=== PATIENT | male | born 1960 | race Caucasian/White ===

== ENCOUNTER 2018-04-25 17:11 | Inpatient (IN) | payer OTHER ==
[~2018-04-25] VITALS: Ht 182.9 cm; Wt 119.8 kg
[~2018-04-25 17:11] MED LIST: AMLODIPINE BESYL5 MG PO; DEXAMETHASONE SOD PHOS INJ 4 MG/ML VIAL IV ONE; FENTANYL CITRATE/PF 100MCG/2 ML INJ ONE; FLOMAX0.4 MG PO; GLIMEPIRIDE4 MG PO; LIDOCAINE HCL 2% LOCAL INJ 5 ML SDV VIAL INJ ONE; LISINOPRIL40 MG PO; LOVASTATIN20 MG PO; METFORMIN HCL1000 M1 PO; MIDAZOLAM HCL 2 MG/2 ML VIAL ONE; ONDANSETRON HCL INJ 2 MG/ML VIAL IV ONE; PROPOFOL IV EMULSION 10 MG/ML 20 ML VIAL IV ONE; SEVOFLURANE INHAL SOLN 250 ML PEN BTL INH ONE; VICTOZA 3-0.6 MG/0.1 SQ
[2018-04-25 17:45] VITALS: BP 115/78
[2018-04-25] MEDS ORDERED: VANCOMYCIN 1GM/NS 250 ML 250 ML IV SCH (17:45)
[2018-04-25] MEDS ORDERED: DEXTROSE 50% SYRINGE 50 ML IV PRN (17:45)
[2018-04-25 18:00] VITALS: BP 115/78
[2018-04-25] MEDS ORDERED: CLINDAMYCIN HC150 MG PO (18:00)
[2018-04-25 19:01] LABS: BASOPHILS # (AUTO) 0.1 (0.0-0.1); BASOPHILS % 0.6 % (0.0-1.0); EOSINOPHILS # (AUTO) 0.3 (0.0-0.4); EOSINOPHILS % 1.6 % (0.0-6.0); HEMATOCRIT 37.8 % (38.2-49.6); LYMPHOCYTES # (AUTO) 2.7 (1.0-3.2); LYMPHOCYTES % 15.6 % (18.0-39.1); MEAN CORPUSCULAR HEMOGLOBIN 31.4 pg (28-32); MEAN CORPUSCULAR HGB CONC 34.4 g/dL (31-35); MEAN CORPUSCULAR VOLUME 91.3 fL (81-99); MONOCYTES # (AUTO) 1.7 (0.2-0.8); MONOCYTES % 9.8 % (4.4-11.3); NEUTROPHILS # (AUTO) 11.8 (2.1-6.9); NEUTROPHILS % 68.4 % (38.7-80.0); PLATELET COUNT 257 x10e3/uL (140-360); RED BLOOD COUNT 4.14 x10e6/uL (4.3-5.7); RED CELL DISTRIBUTION WIDTH 11.9 % (11.7-14.4)
[2018-04-25 19:21] LABS: ALBUMIN 2.5 g/dL (3.5-5.0); ALBUMIN/GLOBULIN RATIO 0.6 (0.8-2.0); ANION GAP 15.6 mmol/L (8-16); CALCIUM 9.2 mg/dL (8.4-10.2); CREATININE, SERUM 1.34 mg/dL (0.72-1.25); POTASSIUM 3.6 mmol/L (3.5-5.1)
[2018-04-25 19:38] LABS: EOSINOPHILS % (MANUAL) 4 % (0-7); LYMPHOCYTES % (MANUAL) 11 % (19-48); MONOCYTES % (MANUAL) 8 % (3.4-9.0); NEUTROPHILS % (MANUAL) 74 % (40-74); PLATELET ESTIMATE ADEQUATE; PLATELET MORPHOLOGY COMMENT FEW GIANT; RBC MORPHOLOGY COMMENT NORMAL
[2018-04-25 20:44] VITALS: BP 115/64
[2018-04-25] MEDS ORDERED: SODIUM CHLORIDE 0.9% 250ML 250 ML ONE (20:50)
[2018-04-25] MEDS ORDERED: INSULIN DETEMIR 100 UNIT/ML PEN SQ SCH (21:00)
[2018-04-25] MEDS: INSULIN REGULAR, HUMAN 100 UNIT/1 ML 3ML VIAL SQ SCH (21:00)
[2018-04-25] MEDS: VANCOMYCIN 1GM/NS 250 ML 250 ML IV SCH (21:26)
[2018-04-26] MEDS: PIPER-TAZ 3.375 GM 50 ML IV SCH ×4 (00:35→18:04)
[2018-04-26 01:00] VITALS: BP 122/76
[2018-04-26 04:00] VITALS: BP 121/77
[2018-04-26] MEDS: INSULIN REGULAR, HUMAN 100 UNIT/1 ML 3ML VIAL SQ SCH ×4 (07:30→21:00)
[2018-04-26 08:00] VITALS: BP 122/80
[2018-04-26] MEDS: LISINOPRIL 20 MG TAB PO SCH (09:00)
[2018-04-26] MEDS: INSULIN DETEMIR 100 UNIT/ML PEN SQ SCH ×2 (09:00→16:48)
[2018-04-26] MEDS ORDERED: MUPIROCIN 2% OINT 22 GM TUBE ONE (10:05)
[2018-04-26] MEDS ORDERED: HYDROGEN PEROXIDE 120 ML BTL ONE (10:05)
[2018-04-26] MEDS ORDERED: BUPIVACAINE 0.25% 30ML SDV INJ ONE (10:05)
[2018-04-26] MEDS ORDERED: FENTANYL CITRATE/PF 100MCG/2 ML INJ ONE (11:24)
[2018-04-26] MEDS ORDERED: MORPHINE SULFATE 2 MG/ML SYR ONE (11:42)
[2018-04-26] MEDS ORDERED: MEPERIDINE HCL INJ 50 MG/ML INJ ONE (11:48)
[2018-04-26] MEDS: VANCOMYCIN 1GM/NS 250 ML 250 ML IV SCH ×2 (12:00→23:24)
[2018-04-26] MEDS ORDERED: HYDROMORPHONE 2MG/ML 2 MG/ML ML ONE (12:16)
--- NOTE | 2018-04-26 12:24 | Operative Report ---
DATE OF PROCEDURE: April 26, 2018 PREOPERATIVE DIAGNOSES: Left gluteal abscess, obesity, and diabetes. POSTOPERATIVE DIAGNOSES: Left gluteal abscess, obesity, and diabetes. PROCEDURE PERFORMED: Incision and drainage of left gluteal abscess and debridement of necrotic tissue. ANESTHESIA: General endotracheal. ESTIMATED BLOOD LOSS: Minimal. DRAINS: None. COMPLICATIONS: None. INDICATIONS: The patient is a 57-year-old diabetic male admitted with a left gluteal abscess, had been treated with oral antibiotics without resolution. INTRAOPERATIVE FINDINGS: The patient had a left gluteal abscess that is located, with the patient in lithotomy position, from about 3 o'clock position to about 12 o'clock position to the penis, it did not involve the scrotum, did not involve the rectum. The pus was whitish and nonfoul smelling. The cavity was irrigated and we did not find any fistula. A [place] drain was placed. DESCRIPTION OF PROCEDURE: With the patient lying on the operative table in the supine position after administration of general anesthesia, he was prepped and draped for incision and drainage of left gluteal abscess with the patient in lithotomy position. An incision was made in the upper-most fluctuant area inferior to the base of the penis and a counterincision inferior to that. The 2 incisions were interconnected with a Ju drain that was secured to itself with 3-0 silk. The cavity copiously irrigated and the prostate tissue divided, bleeding points cauterized and then the wound was packed with iodoform impregnated 4 x 4. The patient tolerated the procedure well, taken to the recovery room in stable condition. Job#: [id number] BONY
[2018-04-26] MEDS ORDERED: SODIUM CHLORIDE 0.9% 1000ML 1,000 ML ONE (12:25)
[2018-04-26] MEDS: HYDROCODONE/APAP 7.5MG-325MG 1 EA TAB PO PRN (13:39)
[2018-04-26 16:00] VITALS: BP 106/64
[2018-04-26 20:25] VITALS: BP 122/66
[2018-04-26] MEDS: PRAVASTATIN 20 MG TAB PO SCH (21:45)
[2018-04-26 22:00] VITALS: BP 122/66
[2018-04-27] MEDS: PIPER-TAZ 3.375 GM 50 ML IV SCH ×5 (01:05→23:43)
[2018-04-27] MEDS: HYDROCODONE/APAP 7.5MG-325MG 1 EA TAB PO PRN ×3 (01:32→16:36)
[2018-04-27 05:34] VITALS: BP 111/72
[2018-04-27 09:13] VITALS: BP 129/63
[2018-04-27] MEDS: LISINOPRIL 20 MG TAB PO SCH (09:20)
[2018-04-27] MEDS: INSULIN DETEMIR 100 UNIT/ML PEN SQ SCH ×2 (09:26→16:36)
[2018-04-27] MEDS: INSULIN REGULAR, HUMAN 100 UNIT/1 ML 3ML VIAL SQ SCH ×4 (09:27→21:00)
[2018-04-27] MEDS: VANCOMYCIN 1GM/NS 250 ML 250 ML IV SCH ×2 (09:35→21:19)
[2018-04-27 12:09] VITALS: BP 145/82
[2018-04-27 16:21] VITALS: BP 155/72
[2018-04-27] MEDS: HYDROMORPHONE 2MG/ML 2 MG/ML ML IV PRN ×2 (19:39→23:43)
[2018-04-27] MEDS: PRAVASTATIN 20 MG TAB PO SCH (21:19)
[2018-04-28] VITALS (7 sets, daily range): BP systolic 119–159; BP diastolic 61–86
[2018-04-28 05:32] LABS: BASOPHILS # (AUTO) 0.1 (0.0-0.1); BASOPHILS % 0.8 % (0.0-1.0); EOSINOPHILS # (AUTO) 0.3 (0.0-0.4); EOSINOPHILS % 2.4 % (0.0-6.0); LYMPHOCYTES # (AUTO) 3.9 (1.0-3.2); LYMPHOCYTES % 27.4 % (18.0-39.1); MEAN CORPUSCULAR HEMOGLOBIN 31.4 pg (28-32); MEAN CORPUSCULAR HGB CONC 33.3 g/dL (31-35); MEAN CORPUSCULAR VOLUME 94.2 fL (81-99); MONOCYTES # (AUTO) 1.1 (0.2-0.8); MONOCYTES % 7.8 % (4.4-11.3); NEUTROPHILS # (AUTO) 8.1 (2.1-6.9); NEUTROPHILS % 56.8 % (38.7-80.0); PLATELET COUNT 246 x10e3/uL (140-360); RED BLOOD COUNT 3.82 x10e6/uL (4.3-5.7); RED CELL DISTRIBUTION WIDTH 11.9 % (11.7-14.4)
[2018-04-28 05:56] LABS: ANION GAP 13.3 mmol/L (8-16); BLOOD UREA NITROGEN 10 mg/dL (7-26); BUN/CREATININE RATIO 9 (6-25); CALCIUM 8.5 mg/dL (8.4-10.2); CARBON DIOXIDE 26 mmol/L (22-29); CHLORIDE 106 mmol/L (98-107); CREATININE, SERUM 1.13 mg/dL (0.72-1.25); EST GLOMERULAR FILTRATION RATE > 60 ML/MIN (60-); GLUCOSE 124 mg/dL (74-118); POTASSIUM 4.3 mmol/L (3.5-5.1); SODIUM 141 mmol/L (136-145)
[2018-04-28] MEDS: PIPER-TAZ 3.375 GM 50 ML IV SCH ×2 (06:29→12:00)
[2018-04-28] MEDS: INSULIN REGULAR, HUMAN 100 UNIT/1 ML 3ML VIAL SQ SCH ×4 (07:30→21:30)
[2018-04-28 07:35] LABS: EOSINOPHILS % (MANUAL) 2 % (0-7); LYMPHOCYTES % (MANUAL) 30 % (19-48); METAMYELOCYTES % (MANUAL) 1 % (0-0); MONOCYTES % (MANUAL) 5 % (3.4-9.0); MYELOCYTES % (MANUAL) 2 % (0-0); NEUTROPHILS % (MANUAL) 59 % (40-74)
[2018-04-28 07:36] LABS: ANISOCYTOSIS SLIGHT; PLATELET ESTIMATE ADEQUATE; PLATELET MORPHOLOGY COMMENT NORMAL; RBC MORPHOLOGY COMMENT NORMAL
[2018-04-28] MEDS: HYDROMORPHONE 2MG/ML 2 MG/ML ML IV PRN ×4 (07:37→20:02)
[2018-04-28] MEDS: INSULIN DETEMIR 100 UNIT/ML PEN SQ SCH ×2 (09:00→17:00)
[2018-04-28] MEDS: NICOTINE 14 MG/EA PATCH TOP SCH (09:00)
[2018-04-28] MEDS: VANCOMYCIN 1GM/NS 250 ML 250 ML IV SCH ×2 (09:00→22:20)
[2018-04-28] MEDS ORDERED: BACITRACIN 50,000 UNIT VIAL ONE (13:51)
[2018-04-28] MEDS ORDERED: HYDROGEN PEROXIDE 120 ML BTL ONE (14:27)
[2018-04-28] MEDS: LEVOFLOXACIN 750MG/D5W 150ML 150 ML IV SCH (15:45)
--- NOTE | 2018-04-28 15:45 | Operative Report ---
DATE OF PROCEDURE: April 28, 2018 PREOPERATIVE DIAGNOSES 1. Status post incision and drainage and debridement of left gluteal abscess. 2. Diabetes. 3. Obesity. 4. Cigarette abuse. POSTOPERATIVE DIAGNOSES 1. Status post incision and drainage and debridement of left gluteal abscess. 2. Diabetes. 3. Obesity. 4. Cigarette abuse. PROCEDURE PERFORMED: Debridement of necrotic tissue and irrigation of the wound. ESTIMATED BLOOD LOSS: Minimal. DRAINS: None. COMPLICATIONS: None. INDICATIONS AND FINDINGS: This 57-year-old diabetic male was admitted with an abscess of the left gluteal region. Patient is status post day 2 for the initial drainage and debridement of an abscess of the left gluteal area that extended from the base of the scrotum to the medial left gluteal area. There was no involvement of the rectum nor fistula, and culture and sensitivities so far have revealed staph infection. The patient now is admitted for further debridement. He has been noncompliant, leaving his room and going outside of the hospital to smoke. He has been advised against doing that and has been started on a NicoDerm patch. DESCRIPTION OF PROCEDURE: With the patient lying on the operative table in the supine position, after administration of general anesthesia, he was prepped and draped for incision and drainage. He was placed in the right lateral decubitus position with the left side up to allow exposure for the debridement. The patient had already a [place] drain. There was further necrotic tissue located superior along the left gluteal region. The previously drained abscess with a Ju drain was located distally. This previously drained area extended to the base of the scrotum, but there was no drainage. There was no involvement of the scrotum. We went ahead and debrided further necrotic tissue that was located in the most superior aspect of the left gluteal region going into the presacral area, excised a segment about the size of a quarter of necrotic skin and subcutaneous fat until we reached an area of further soft-tissue necrosis. We made a counter-incision and then interconnected the 2 sites with a 1/4-inch [place] drain and then debrided all necrotic tissue in that area and irrigated it with saline and Betadine solution. We then further debrided the previously drained area until all the tissue appeared to be viable. Again, we examined the operative field, and the soft-tissue necrosis involved the upper part of the scrotum but did not involve the scrotum. There was no evidence of rectal involvement. As previously stated, this is a methicillin-resistant staph. He is on vancomycin. After we debrided both areas and copiously irrigated, then we packed that the 2 cavities of the left gluteal region with Betadine and peroxide-containing sponge. Sterile dressing was applied. The patient tolerated the procedure well and was taken to the recovery room in stable condition. The family was informed of the intraoperative findings. I asked them to encourage the patient to follow hospital policy and stop leaving the hospital to smoke. Job#: [id number]
[2018-04-28] MEDS: LISINOPRIL 20 MG TAB PO SCH (16:00)
[2018-04-28] MEDS ORDERED: MIDAZOLAM HCL 2 MG/2 ML VIAL ONE (17:24)
[2018-04-28] MEDS ORDERED: FENTANYL CITRATE/PF 100MCG/2 ML INJ ONE (17:24)
[2018-04-28] MEDS: HYDROCODONE/APAP 7.5MG-325MG 1 EA TAB PO PRN (17:27)
[2018-04-28] MEDS ORDERED: SEVOFLURANE INHAL SOLN 250 ML PEN BTL ONE (17:41)
[2018-04-28] MEDS ORDERED: EPHEDRINE SULFATE INJ 50 MG/10 ML SYR ONE (17:41)
[2018-04-28] MEDS ORDERED: ONDANSETRON HCL INJ 2 MG/ML VIAL ONE (17:41)
[2018-04-28] MEDS ORDERED: PROPOFOL IV EMULSION 10 MG/ML 20 ML VIAL ONE (17:41)
[2018-04-28] MEDS: PRAVASTATIN 20 MG TAB PO SCH (21:30)
[2018-04-29] VITALS (9 sets, daily range): BP systolic 114–150; BP diastolic 56–75
[2018-04-29] MEDS: HYDROMORPHONE 2MG/ML 2 MG/ML ML IV PRN ×6 (00:47→22:35)
[2018-04-29 05:16] LABS: BASOPHILS # (AUTO) 0.1 (0.0-0.1); BASOPHILS % 0.5 % (0.0-1.0); EOSINOPHILS # (AUTO) 0.3 (0.0-0.4); EOSINOPHILS % 2.3 % (0.0-6.0); HEMATOCRIT 35.3 % (38.2-49.6); HEMOGLOBIN 11.6 g/dL (14.0-18.0); LYMPHOCYTES # (AUTO) 2.9 (1.0-3.2); LYMPHOCYTES % 22.4 % (18.0-39.1); MEAN CORPUSCULAR HEMOGLOBIN 31.2 pg (28-32); MEAN CORPUSCULAR HGB CONC 32.9 g/dL (31-35); MEAN CORPUSCULAR VOLUME 94.9 fL (81-99); MONOCYTES % 7.8 % (4.4-11.3); NEUTROPHILS # (AUTO) 8.4 (2.1-6.9); NEUTROPHILS % 63.9 % (38.7-80.0); PLATELET COUNT 241 x10e3/uL (140-360); RED BLOOD COUNT 3.72 x10e6/uL (4.3-5.7); RED CELL DISTRIBUTION WIDTH 11.9 % (11.7-14.4)
[2018-04-29 05:41] LABS: ALANINE AMINOTRANSFERASE 25 IU/L (0-55); ALBUMIN 2.5 g/dL (3.5-5.0); ALBUMIN/GLOBULIN RATIO 0.6 (0.8-2.0); ALKALINE PHOSPHATASE 53 IU/L (40-150); ANION GAP 12.1 mmol/L (8-16); BLOOD UREA NITROGEN 9 mg/dL (7-26); BUN/CREATININE RATIO 8 (6-25); CALCIUM 9.3 mg/dL (8.4-10.2); CARBON DIOXIDE 28 mmol/L (22-29); CHLORIDE 105 mmol/L (98-107); EST GLOMERULAR FILTRATION RATE > 60 ML/MIN (60-); GLUCOSE 83 mg/dL (74-118); POTASSIUM 4.1 mmol/L (3.5-5.1); SODIUM 141 mmol/L (136-145)
[2018-04-29] MEDS: INSULIN REGULAR, HUMAN 100 UNIT/1 ML 3ML VIAL SQ SCH ×4 (07:30→21:40)
[2018-04-29] MEDS: INSULIN DETEMIR 100 UNIT/ML PEN SQ SCH ×2 (08:35→16:31)
[2018-04-29] MEDS: NICOTINE 14 MG/EA PATCH TOP SCH (09:00)
[2018-04-29] MEDS: VANCOMYCIN 1GM/NS 250 ML 250 ML IV SCH ×2 (09:00→21:49)
[2018-04-29] MEDS: LISINOPRIL 20 MG TAB PO SCH (09:00)
[2018-04-29] MEDS: LEVOFLOXACIN 750MG/D5W 150ML 150 ML IV SCH (15:34)
[2018-04-29] MEDS: PRAVASTATIN 20 MG TAB PO SCH (21:49)
[2018-04-30] VITALS (8 sets, daily range): BP systolic 130–137; BP diastolic 61–92
[2018-04-30 05:22] LABS: BASOPHILS # (AUTO) 0.1 (0.0-0.1); BASOPHILS % 0.5 % (0.0-1.0); EOSINOPHILS # (AUTO) 0.3 (0.0-0.4); EOSINOPHILS % 2.3 % (0.0-6.0); HEMATOCRIT 34.8 % (38.2-49.6); HEMOGLOBIN 11.5 g/dL (14.0-18.0); LYMPHOCYTES # (AUTO) 3.1 (1.0-3.2); LYMPHOCYTES % 23.2 % (18.0-39.1); MEAN CORPUSCULAR VOLUME 93.8 fL (81-99); MONOCYTES # (AUTO) 0.9 (0.2-0.8); MONOCYTES % 7.1 % (4.4-11.3); NEUTROPHILS # (AUTO) 8.5 (2.1-6.9); NEUTROPHILS % 64.1 % (38.7-80.0); PLATELET COUNT 246 x10e3/uL (140-360); RED BLOOD COUNT 3.71 x10e6/uL (4.3-5.7); RED CELL DISTRIBUTION WIDTH 11.8 % (11.7-14.4)
[2018-04-30 05:45] LABS: ALANINE AMINOTRANSFERASE 20 IU/L (0-55); ALBUMIN 2.5 g/dL (3.5-5.0); ALBUMIN/GLOBULIN RATIO 0.6 (0.8-2.0); ALKALINE PHOSPHATASE 58 IU/L (40-150); ANION GAP 12.9 mmol/L (8-16); BLOOD UREA NITROGEN 9 mg/dL (7-26); BUN/CREATININE RATIO 8 (6-25); CALCIUM 9.4 mg/dL (8.4-10.2); CARBON DIOXIDE 27 mmol/L (22-29); CHLORIDE 104 mmol/L (98-107); CREATININE, SERUM 1.19 mg/dL (0.72-1.25); EST GLOMERULAR FILTRATION RATE > 60 ML/MIN (60-); GLUCOSE 119 mg/dL (74-118); POTASSIUM 3.9 mmol/L (3.5-5.1); SODIUM 140 mmol/L (136-145)
[2018-04-30] MEDS: INSULIN DETEMIR 100 UNIT/ML PEN SQ SCH ×2 (08:44→18:09)
[2018-04-30] MEDS: LISINOPRIL 20 MG TAB PO SCH (08:44)
[2018-04-30] MEDS: VANCOMYCIN 1GM/NS 250 ML 250 ML IV SCH ×2 (08:44→21:00)
[2018-04-30] MEDS: NICOTINE 14 MG/EA PATCH TOP SCH (08:44)
[2018-04-30] MEDS: INSULIN REGULAR, HUMAN 100 UNIT/1 ML 3ML VIAL SQ SCH ×4 (08:44→21:00)
[2018-04-30] MEDS: HYDROCODONE/APAP 7.5MG-325MG 1 EA TAB PO PRN (10:39)
[2018-04-30] MEDS: LEVOFLOXACIN 750MG/D5W 150ML 150 ML IV SCH (17:00)
[2018-04-30] MEDS: HYDROMORPHONE 2MG/ML 2 MG/ML ML IV PRN ×2 (18:30→22:00)
[2018-04-30] MEDS: PRAVASTATIN 20 MG TAB PO SCH (21:00)
[2018-05-01] VITALS: BP_SYST 119; BP_SYST 136; BP_DIAS 58; BP_DIAS 85
[2018-05-01] MEDS: HYDROMORPHONE 2MG/ML 2 MG/ML ML IV PRN ×5 (02:05→21:24)
[2018-05-01 04:00] VITALS: BP 128/65
[2018-05-01 05:08] LABS: BASOPHILS # (AUTO) 0.1 (0.0-0.1); BASOPHILS % 0.5 % (0.0-1.0); EOSINOPHILS # (AUTO) 0.2 (0.0-0.4); EOSINOPHILS % 1.9 % (0.0-6.0); HEMATOCRIT 33.9 % (38.2-49.6); HEMOGLOBIN 11.5 g/dL (14.0-18.0); LYMPHOCYTES # (AUTO) 2.9 (1.0-3.2); LYMPHOCYTES % 26.3 % (18.0-39.1); MEAN CORPUSCULAR HEMOGLOBIN 31.8 pg (28-32); MEAN CORPUSCULAR HGB CONC 33.9 g/dL (31-35); MEAN CORPUSCULAR VOLUME 93.6 fL (81-99); MONOCYTES # (AUTO) 0.8 (0.2-0.8); MONOCYTES % 7.4 % (4.4-11.3); NEUTROPHILS # (AUTO) 6.8 (2.1-6.9); NEUTROPHILS % 62.1 % (38.7-80.0); PLATELET COUNT 248 x10e3/uL (140-360); RED BLOOD COUNT 3.62 x10e6/uL (4.3-5.7); RED CELL DISTRIBUTION WIDTH 11.8 % (11.7-14.4)
[2018-05-01 05:34] LABS: ALANINE AMINOTRANSFERASE 19 IU/L (0-55); ALBUMIN 2.5 g/dL (3.5-5.0); ALBUMIN/GLOBULIN RATIO 0.6 (0.8-2.0); ALKALINE PHOSPHATASE 54 IU/L (40-150); ANION GAP 13.7 mmol/L (8-16); BLOOD UREA NITROGEN 9 mg/dL (7-26); BUN/CREATININE RATIO 8 (6-25); CALCIUM 9.5 mg/dL (8.4-10.2); CARBON DIOXIDE 28 mmol/L (22-29); CHLORIDE 103 mmol/L (98-107); CREATININE, SERUM 1.15 mg/dL (0.72-1.25); EST GLOMERULAR FILTRATION RATE > 60 ML/MIN (60-); GLUCOSE 97 mg/dL (74-118); POTASSIUM 3.7 mmol/L (3.5-5.1); SODIUM 141 mmol/L (136-145)
[2018-05-01] MEDS: INSULIN REGULAR, HUMAN 100 UNIT/1 ML 3ML VIAL SQ SCH ×4 (07:30→21:00)
[2018-05-01 08:00] VITALS: BP 139/71
[2018-05-01] MEDS: INSULIN DETEMIR 100 UNIT/ML PEN SQ SCH ×2 (09:00→17:48)
[2018-05-01] MEDS: NICOTINE 14 MG/EA PATCH TOP SCH (09:00)
[2018-05-01] MEDS: VANCOMYCIN 1GM/NS 250 ML 250 ML IV SCH ×2 (09:00→21:00)
[2018-05-01] MEDS: HYDROCODONE/APAP 7.5MG-325MG 1 EA TAB PO PRN (09:30)
[2018-05-01] MEDS: LISINOPRIL 20 MG TAB PO SCH (10:05)
[2018-05-01 16:00] VITALS: BP 127/80
[2018-05-01] MEDS: LEVOFLOXACIN 750MG/D5W 150ML 150 ML IV SCH (17:48)
[2018-05-01 20:01] VITALS: BP 150/70
[2018-05-01] MEDS: PRAVASTATIN 20 MG TAB PO SCH (21:00)
[2018-05-02] VITALS: BP 155/73
[2018-05-02 04:00] VITALS: BP 139/66
[2018-05-02] MEDS: INSULIN REGULAR, HUMAN 100 UNIT/1 ML 3ML VIAL SQ SCH ×4 (07:30→21:10)
[2018-05-02 08:26] VITALS: BP 119/83
[2018-05-02] MEDS: NICOTINE 14 MG/EA PATCH TOP SCH (09:00)
[2018-05-02] MEDS: VANCOMYCIN 1GM/NS 250 ML 250 ML IV SCH (09:00)
[2018-05-02] MEDS: INSULIN DETEMIR 100 UNIT/ML PEN SQ SCH ×2 (09:00→17:00)
[2018-05-02] MEDS: LISINOPRIL 20 MG TAB PO SCH (09:00)
[2018-05-02] MEDS: HYDROMORPHONE 2MG/ML 2 MG/ML ML IV PRN ×4 (09:30→21:27)
[2018-05-02] MEDS: HYDROCODONE/APAP 7.5MG-325MG 1 EA TAB PO PRN (12:10)
[2018-05-02 12:17] VITALS: BP 175/97
[2018-05-02] MEDS: LEVOFLOXACIN 750MG/D5W 150ML 150 ML IV SCH (15:56)
--- NOTE | 2018-05-02 17:11 | Consultation ---
DATE OF CONSULTATION: REASON FOR CONSULTATION: Deep buttock abscess. HISTORY OF PRESENT ILLNESS: This patient is a very pleasant 57-year-old white male with history of obesity. The patient comes into the hospital on April 25 with redness and swelling and pain in his left leg gluteal area. The patient was admitted and underwent an I and D by Dr. Luiz Her. He called me yesterday saying that the abscess was quite deep and he was concerned that it is not healing as fast and there is still some drainage and he wanted me to see if I can arrange IV antibiotic. The patient did grow MRSA from his buttock area. Patient is telling me that there is still some drainage. PAST MEDICAL HISTORY: Diabetes mellitus and obesity. PAST SURGICAL HISTORY: As above. ALLERGIES: NKA. SOCIAL HISTORY: He still smokes cigarettes and no drug abuse or alcohol abuse. PHYSICAL EXAMINATION: GENERAL: Alert, oriented, does not seem to be in any acute distress. VITAL SIGNS: Stable, currently afebrile. HEENT: Not icteric. NECK: Supple. CHEST: Clear. HEART: S1 and S2, no S3, S4 or murmur. ABDOMEN: Soft. Bowel sounds present. EXTREMITIES: No edema. SKIN: There is no rash. On the buttock area there is still some erythema, induration and drainage still. On the dressing, there was still some liquid but not pus, more serosanguineous. IMPRESSION: Deep buttock abscess, status post I\T\D with MRSA in a patient with diabetes mellitus and obesity. Very slow progress. Will arrange for vancomycin at the house. Will discharge the patient when that is arranged. Will get a PICC line. Will follow with him as an outpatient. Discussed with the patient. Job#: [id number]
[2018-05-02 17:29] VITALS: BP 134/70
[2018-05-02 19:53] LABS: INR 0.97; PROTHROMBIN TIME 13.8 seconds (11.9-14.5)
[2018-05-02 19:54] LABS: PARTIAL THROMBOPLASTIN TIME 30.4 seconds (23.8-35.5)
[2018-05-02 21:00] VITALS: BP 130/69
[2018-05-02] MEDS: PRAVASTATIN 20 MG TAB PO SCH (21:10)
--- NOTE | 2018-05-02 23:07 | Diagnostic Imaging Report ---
EXAMINATION: CHEST XRAY LINE PLACEMENT INDICATION: PICC line placement COMPARISON: None FINDINGS: TUBES and LINES: Right upper extremity PICC line with tip visualized at the level of the mid SVC. LUNGS: Lungs are not well inflated. There are bibasilar atelectasis. There is mild prominence of the central pulmonary vasculature, consistent with pulmonary venous congestion. PLEURA: No pleural effusion or pneumothorax. HEART AND MEDIASTINUM: The cardiomediastinal silhouette is unremarkable. BONES AND SOFT TISSUES: No acute osseous lesion. [place] screw noted overlying the right humeral head Soft tissues are unremarkable. UPPER ABDOMEN: No free air under the diaphragm. IMPRESSION: 1. No acute thoracic abnormality. 2. Right PICC line is in good position Signed by: Dr. Denis Vickers M.D. on 05/02/2018 11:03 PM
[2018-05-03] VITALS: BP 152/90
[2018-05-03] MEDS: HYDROMORPHONE 2MG/ML 2 MG/ML ML IV PRN ×2 (02:16→08:44)
[2018-05-03 06:00] VITALS: BP 125/61
[2018-05-03] MEDS: INSULIN REGULAR, HUMAN 100 UNIT/1 ML 3ML VIAL SQ SCH (07:30)
[2018-05-03 08:00] VITALS: BP 128/70
[2018-05-03] MEDS ORDERED: VANCOMYCIN 1GM/NS 250 ML 250 ML IV ONE (08:45)
[2018-05-03] MEDS: NICOTINE 14 MG/EA PATCH TOP SCH (09:00)
[2018-05-03] MEDS: LISINOPRIL 20 MG TAB PO SCH (09:11)
[2018-05-03] MEDS: INSULIN DETEMIR 100 UNIT/ML PEN SQ SCH (09:12)
[2018-05-03] MEDS: HYDROCODONE/APAP 7.5MG-325MG 1 EA TAB PO PRN (10:47)
--- NOTE | 2018-07-14 01:49 | Discharge Summary ---
This patient came in with cellulitis and abscess of the buttock. The patient consult with Dr. Dee was done. The patient underwent incision and drainage with decompression of the abscess. The patient had a packing in site and also drains in there. We will continue the patient on Vancomycin and Zosyn. Vancomycin troughs were noted. The patient also had uncontrolled diabetes mellitus. Will continue on insulin sliding scale and also on Levemir 15 units at nighttime. The patient's pain did get better with pain medication and also medicines were given for his hyperlipidemia. Once the patient's pain was better, the drain was taken out and the patient was discharged home in a stable condition. The patient had a vancomycin on discharge. The patient had a PICC line placed. The patient was asked to follow up with Dr. Bill for continuous IV antibiotics and IV vancomycin. The patient's wound did grew MRSA. FINAL DIAGNOSES 1. Rectal abscess, status post incision and drainage, culture showed methicillin-resistant Staphylococcus aureus. 2. Obesity. 3. Diabetes mellitus. 4. History of cerebrovascular accident. 5. History of hypertension. 6. History of hyperlipidemia. For further information, look in the chart. For medicines on discharge, look in the medical reconciliation sheet. ZACK RAPHAEL MD Job#: [id number] GE
== END 2018-05-03 10:56 | disposition home or self-care (01) | DRG 358 ==
LOC: MED/SURG2 17:21
PROVIDERS: ADMIT Family Medicine; ATTEND Family Medicine
PROC: 0JB90ZZ Excision of Buttock Subcutaneous Tissue and Fascia, Open Approach (ICD-10-PCS; principal; 2018-04-26 10:13)
PROC: 0JB90ZZ Excision of Buttock Subcutaneous Tissue and Fascia, Open Approach (ICD-10-PCS; 2018-04-28)
PROC: 0JB90ZZ Excision of Buttock Subcutaneous Tissue and Fascia, Open Approach (ICD-10-PCS; 2018-04-28)
PROC: 02HV33Z Insertion of Infusion Device into Superior Vena Cava, Percutaneous Approach (ICD-10-PCS; 2018-05-02)
DX: K61.2 Anorectal abscess (principal); F17.210 Nicotine dependence, cigarettes, uncomplicated; B95.62 Methicillin resistant Staphylococcus aureus infection as the cause of diseases classified elsewhere; E66.9 Obesity, unspecified; Z68.35 Body mass index [BMI] 35.0-35.9, adult; E11.65 Type 2 diabetes mellitus with hyperglycemia; E78.5 Hyperlipidemia, unspecified; Z91.19 Patient's noncompliance with other medical treatment and regimen; Z79.4 Long term (current) use of insulin
CPT/HCPCS: 36415; 36569; 71045; 74470; 80048; 80053; 80202; 82948; 85025; 85610; 85730; 87071; 87075; 87186; 87205; 93005; J1100; J2001; J2175; J2250; J2270; J2405; J2543; J3370; J7030; J7050

== ENCOUNTER 2021-01-18 13:45 | Inpatient (IN) | payer OTHER ==
[~2021-01-18] VITALS: Ht 182.9 cm; Wt 119.7 kg
[~2021-01-18 13:45] MED LIST changes: +CLINDAMYCIN HC150 MG PO; -DEXAMETHASONE SOD PHOS INJ 4 MG/ML VIAL IV ONE; -FENTANYL CITRATE/PF 100MCG/2 ML INJ ONE; -LIDOCAINE HCL 2% LOCAL INJ 5 ML SDV VIAL INJ ONE; -MIDAZOLAM HCL 2 MG/2 ML VIAL ONE; -ONDANSETRON HCL INJ 2 MG/ML VIAL IV ONE; -PROPOFOL IV EMULSION 10 MG/ML 20 ML VIAL IV ONE; -SEVOFLURANE INHAL SOLN 250 ML PEN BTL INH ONE
[2021-01-18] MEDS ORDERED: CLOPIDOGREL75 MG (14:05)
[2021-01-18] MEDS ORDERED: LIDOCAINE JELLY 2% 10ML URO-JET ONE (14:27)
[2021-01-18 14:53] LABS: BASOPHILS # (AUTO) 0.1 (0.0-0.1); BASOPHILS % 0.6 % (0.0-1.0); EOSINOPHILS # (AUTO) 0.1 (0.0-0.4); EOSINOPHILS % 0.6 % (0.0-6.0); HEMATOCRIT 39.1 % (38.2-49.6); HEMOGLOBIN 12.9 g/dL (14.0-18.0); LYMPHOCYTES # (AUTO) 2.6 (1.0-3.2); MEAN CORPUSCULAR HEMOGLOBIN 30.9 pg (28-32); MEAN CORPUSCULAR VOLUME 93.8 fL (81-99); MONOCYTES # (AUTO) 1.2 (0.2-0.8); MONOCYTES % 8.5 % (4.4-11.3); NEUTROPHILS # (AUTO) 10.2 (2.1-6.9); NEUTROPHILS % 71.8 % (38.7-80.0); PLATELET COUNT 261 x10e3/uL (140-360); RED BLOOD COUNT 4.17 x10e6/uL (4.3-5.7); RED CELL DISTRIBUTION WIDTH 13.1 % (11.7-14.4)
[2021-01-18 14:59] LABS: CLARITY,URINE TURBID (CLEAR); COLOR,URINE RED (YELLOW)
[2021-01-18 15:00] LABS: KETONES,URINE 2+ (NEGATIVE); LEUKOCYTE ESTERASE ,URINE LARGE (NEGATIVE); NITRITE,URINE POSITIVE (NEGATIVE); PROTEIN,URINE DIPSTICK >=300 (NEGATIVE); URINE UROBILINOGEN >=8 mg/dL (0.2 - 1)
[2021-01-18 15:02] LABS: PROTHROMBIN TIME 13.8 seconds (11.9-14.5)
[2021-01-18 15:03] LABS: PARTIAL THROMBOPLASTIN TIME 37.9 seconds (23.8-35.5)
[2021-01-18 15:10] LABS: ALBUMIN 3.5 g/dL (3.5-5.0); ALBUMIN/GLOBULIN RATIO 0.9 (0.8-2.0); ANION GAP 19.9 mmol/L (8-16); CALCIUM 8.4 mg/dL (8.4-10.2); CREATININE, SERUM 4.25 mg/dL (0.72-1.25); POTASSIUM 3.9 mmol/L (3.5-5.1)
[2021-01-18 15:17] LABS: BACTERIA,URINE FEW /HPF; RBC,URINE >50 /HPF (0-5)
[2021-01-18] MEDS ORDERED: CEFTRIAXONE 1 GM in SODIUM CHLORIDE 0.9% 50ML 50 ML IV ONE (16:30)
[2021-01-18] MEDS: MORPHINE SULFATE INJ 2 MG/ML SYR IV PRN ×2 (18:24→22:08)
[2021-01-18] MEDS: ONDANSETRON HCL INJ 2MG/ML 2ML 2 MG/ML VIAL IV PRN (18:24)
[2021-01-18] MEDS: LIDOCAINE/PRILOCAINE 2.5-2.5% KIT TOP PRN (18:24)
[2021-01-18] MEDS: SODIUM CHLORIDE 0.9% 1000ML 1,000 ML IV SCH (18:24)
[2021-01-18 20:00] VITALS: BP 134/84
[2021-01-18 21:00] VITALS: BP 110/98
[2021-01-18] MEDS ORDERED: NON-FORMULARY MEDICATION (Lovastatin 20 MG) PO SCH (21:00)
[2021-01-18] MEDS ORDERED: DEXTROSE 50% SYRINGE 50 ML IV PRN ×2 (21:00→21:45)
[2021-01-18] MEDS ORDERED: INSULIN LISPRO 100 UNIT/1 ML 3ML VIAL SQ SCH (21:00)
[2021-01-18] MEDS: TEMAZEPAM 15 MG CAP PO PRN (21:39)
[2021-01-19] VITALS (8 sets, daily range): BP systolic 95–134; BP diastolic 51–68
[2021-01-19] MEDS: MORPHINE SULFATE INJ 2 MG/ML SYR IV PRN ×6 (02:43→21:34)
[2021-01-19] MEDS: SODIUM CHLORIDE 0.9% 1000ML 1,000 ML IV SCH ×3 (02:58→23:51)
[2021-01-19] MEDS ORDERED: SODIUM CHLORIDE 0.9% 500ML 500 ML IV ONE (04:45)
[2021-01-19] MEDS: LISINOPRIL 20 MG TAB PO SCH (09:00)
[2021-01-19] MEDS: GLIMEPIRIDE 2 MG TAB PO SCH (09:04)
[2021-01-19] MEDS: METFORMIN HCL 500 MG TAB CR PO SCH ×2 (09:04→16:25)
[2021-01-19] MEDS: LIDOCAINE/PRILOCAINE 2.5-2.5% KIT TOP PRN (09:44)
[2021-01-19] MEDS: B&O 60MG R/S 60 MG SUPP PR PRN ×2 (10:33→19:33)
[2021-01-19 17:08] LABS: CREATININE, SERUM 1.64 mg/dL (0.72-1.25)
[2021-01-19] MEDS: SIMVASTATIN 20 MG TAB PO SCH (21:31)
[2021-01-19] MEDS: TEMAZEPAM 15 MG CAP PO PRN (21:32)
[2021-01-20] VITALS (7 sets, daily range): BP systolic 113–140; BP diastolic 61–73
[2021-01-20] MEDS: MORPHINE SULFATE INJ 2 MG/ML SYR IV PRN ×8 (01:03→23:39)
[2021-01-20 04:53] LABS: BASOPHILS # (AUTO) 0.1 (0.0-0.1); BASOPHILS % 0.6 % (0.0-1.0); EOSINOPHILS # (AUTO) 0.3 (0.0-0.4); EOSINOPHILS % 3.1 % (0.0-6.0); HEMATOCRIT 29.5 % (38.2-49.6); HEMOGLOBIN 9.7 g/dL (14.0-18.0); LYMPHOCYTES # (AUTO) 2.4 (1.0-3.2); LYMPHOCYTES % 29.5 % (18.0-39.1); MEAN CORPUSCULAR HEMOGLOBIN 31.3 pg (28-32); MEAN CORPUSCULAR HGB CONC 32.9 g/dL (31-35); MEAN CORPUSCULAR VOLUME 95.2 fL (81-99); MONOCYTES # (AUTO) 0.9 (0.2-0.8); MONOCYTES % 10.6 % (4.4-11.3); NEUTROPHILS # (AUTO) 4.5 (2.1-6.9); PLATELET COUNT 200 x10e3/uL (140-360); RED CELL DISTRIBUTION WIDTH 12.7 % (11.7-14.4)
[2021-01-20 05:13] LABS: ANION GAP 8.8 mmol/L (8-16); CREATININE, SERUM 1.08 mg/dL (0.72-1.25); POTASSIUM 3.8 mmol/L (3.5-5.1)
[2021-01-20] MEDS: LISINOPRIL 20 MG TAB PO SCH (09:00)
[2021-01-20] MEDS: METFORMIN HCL 500 MG TAB CR PO SCH (09:00)
[2021-01-20] MEDS: GLIMEPIRIDE 2 MG TAB PO SCH (09:00)
[2021-01-20] MEDS: SODIUM CHLORIDE 0.9% 1000ML 1,000 ML IV SCH ×3 (09:26→21:44)
[2021-01-20] MEDS ORDERED: DEXTROSE 50% SYRINGE 50 ML IV PRN (17:45)
[2021-01-20] MEDS: INSULIN LISPRO 100 UNIT/1 ML 3ML VIAL SQ SCH ×2 (17:50→21:00)
[2021-01-20] MEDS: INSULIN GLARGINE 100 UNITS/ML VIAL SQ SCH (21:00)
[2021-01-20] MEDS: LIDOCAINE/PRILOCAINE 2.5-2.5% KIT TOP PRN (21:00)
[2021-01-20] MEDS: SIMVASTATIN 20 MG TAB PO SCH (21:34)
[2021-01-20] MEDS: TEMAZEPAM 15 MG CAP PO PRN (21:44)
[2021-01-21] VITALS (12 sets, daily range): BP systolic 109–163; BP diastolic 53–80
[2021-01-21] MEDS: LIDOCAINE/PRILOCAINE 2.5-2.5% KIT TOP PRN (03:31)
[2021-01-21] MEDS: MORPHINE SULFATE INJ 2 MG/ML SYR IV PRN ×6 (03:31→21:43)
[2021-01-21] MEDS ORDERED: IOPAMIDOL 300MG/ML 50ML INFUS..BTL IV ONE (06:54)
[2021-01-21] MEDS ORDERED: B&O 60MG R/S 60 MG SUPP PR ONE (06:55)
[2021-01-21] MEDS: INSULIN LISPRO 100 UNIT/1 ML 3ML VIAL SQ SCH ×3 (07:30→21:44)
[2021-01-21] MEDS: LISINOPRIL 20 MG TAB PO SCH (09:00)
[2021-01-21] MEDS: GLIMEPIRIDE 2 MG TAB PO SCH (09:00)
[2021-01-21] MEDS ORDERED: ACETAMINOPHEN 1000 MG/100 ML 100 ML IV ONE ×2 (11:42→11:46)
[2021-01-21] MEDS ORDERED: B&O 60MG R/S 60 MG SUPP PR PRN (12:00)
[2021-01-21] MEDS ORDERED: PHENAZOPYRIDINE HCL 100 MG TAB PO PRN (12:00)
[2021-01-21] MEDS ORDERED: FENTANYL CITRATE/PF 100MCG/2 ML INJ ONE ×2 (12:26→12:28)
[2021-01-21] MEDS ORDERED: MIDAZOLAM HCL 2 MG/2 ML VIAL ONE (12:26)
[2021-01-21] MEDS: CEFTRIAXONE 1 GM in SODIUM CHLORIDE 0.9% 50ML 50 ML IV SCH (12:30)
[2021-01-21] MEDS ORDERED: CEFTRIAXONE 1 GM VIAL ONE (13:53)
[2021-01-21] MEDS ORDERED: LIDOCAINE HCL 2% LOCAL INJ 5 ML SDV VIAL INJ ONE (13:53)
[2021-01-21] MEDS ORDERED: POVIDONE IODINE 0.05% 0.05 % ML PO ONE (13:53)
[2021-01-21] MEDS ORDERED: SEVOFLURANE INHAL SOLN 250 ML PEN BTL ONE (13:53)
[2021-01-21] MEDS ORDERED: ONDANSETRON HCL INJ 2MG/ML 2ML 2 MG/ML VIAL ONE (13:53)
[2021-01-21] MEDS ORDERED: PROPOFOL IV EMULSION 10 MG/ML 20 ML VIAL ONE (13:53)
[2021-01-21] MEDS: SODIUM CHLORIDE 0.9% 1000ML 1,000 ML IV SCH ×2 (15:45→22:31)
[2021-01-21] MEDS: SIMVASTATIN 20 MG TAB PO SCH (21:43)
[2021-01-21] MEDS: ONDANSETRON HCL INJ 2MG/ML 2ML 2 MG/ML VIAL IV PRN (21:43)
[2021-01-21] MEDS: TEMAZEPAM 15 MG CAP PO PRN (21:43)
[2021-01-21] MEDS: INSULIN GLARGINE 100 UNITS/ML VIAL SQ SCH (21:46)
[2021-01-22] VITALS (8 sets, daily range): BP systolic 110–147; BP diastolic 56–79
[2021-01-22] MEDS: MORPHINE SULFATE INJ 2 MG/ML SYR IV PRN ×7 (00:40→21:26)
[2021-01-22] MEDS: ONDANSETRON HCL INJ 2MG/ML 2ML 2 MG/ML VIAL IV PRN (03:40)
[2021-01-22] MEDS: TEMAZEPAM 15 MG CAP PO PRN ×2 (04:06→21:26)
[2021-01-22 05:32] LABS: BASOPHILS # (AUTO) 0.1 (0.0-0.1); BASOPHILS % 0.7 % (0.0-1.0); EOSINOPHILS # (AUTO) 0.3 (0.0-0.4); EOSINOPHILS % 3.4 % (0.0-6.0); HEMATOCRIT 25.4 % (38.2-49.6); HEMOGLOBIN 8.4 g/dL (14.0-18.0); LYMPHOCYTES # (AUTO) 1.9 (1.0-3.2); LYMPHOCYTES % 23.4 % (18.0-39.1); MEAN CORPUSCULAR HEMOGLOBIN 31.3 pg (28-32); MEAN CORPUSCULAR HGB CONC 33.1 g/dL (31-35); MEAN CORPUSCULAR VOLUME 94.8 fL (81-99); MONOCYTES # (AUTO) 0.7 (0.2-0.8); MONOCYTES % 8.8 % (4.4-11.3); NEUTROPHILS # (AUTO) 5.2 (2.1-6.9); NEUTROPHILS % 63.3 % (38.7-80.0); PLATELET COUNT 215 x10e3/uL (140-360); RED BLOOD COUNT 2.68 x10e6/uL (4.3-5.7); RED CELL DISTRIBUTION WIDTH 12.6 % (11.7-14.4)
[2021-01-22 05:58] LABS: ALBUMIN 2.5 g/dL (3.5-5.0); ALBUMIN/GLOBULIN RATIO 0.8 (0.8-2.0); CALCIUM 7.9 mg/dL (8.4-10.2); CREATININE, SERUM 0.79 mg/dL (0.72-1.25); MAGNESIUM 1.3 MG/DL (1.3-2.1)
[2021-01-22] MEDS: INSULIN LISPRO 100 UNIT/1 ML 3ML VIAL SQ SCH ×4 (07:30→21:00)
[2021-01-22] MEDS ORDERED: TAMSULOSIN HCL 0.4 MG CAP PO ONE (07:45)
[2021-01-22] MEDS: CEFTRIAXONE 1 GM in SODIUM CHLORIDE 0.9% 50ML 50 ML IV SCH (08:28)
[2021-01-22] MEDS: LISINOPRIL 20 MG TAB PO SCH (08:29)
[2021-01-22] MEDS: GLIMEPIRIDE 2 MG TAB PO SCH (08:29)
[2021-01-22] MEDS: SODIUM CHLORIDE 0.9% 1000ML 1,000 ML IV SCH ×2 (11:45→23:10)
[2021-01-22] MEDS: INSULIN GLARGINE 100 UNITS/ML VIAL SQ SCH (21:00)
[2021-01-22] MEDS: TAMSULOSIN HCL 0.4 MG CAP PO SCH (21:16)
[2021-01-22] MEDS: SIMVASTATIN 20 MG TAB PO SCH (21:16)
[2021-01-23] VITALS (8 sets, daily range): BP systolic 130–155; BP diastolic 53–81
[2021-01-23] MEDS: MORPHINE SULFATE INJ 2 MG/ML SYR IV PRN ×7 (02:08→22:47)
[2021-01-23] MEDS: SODIUM CHLORIDE 0.9% 1000ML 1,000 ML IV SCH ×2 (07:45→17:00)
[2021-01-23] MEDS: INSULIN LISPRO 100 UNIT/1 ML 3ML VIAL SQ SCH ×4 (08:30→21:00)
[2021-01-23] MEDS: LISINOPRIL 20 MG TAB PO SCH (08:39)
[2021-01-23] MEDS: CEFTRIAXONE 1 GM in SODIUM CHLORIDE 0.9% 50ML 50 ML IV SCH (08:39)
[2021-01-23] MEDS: GLIMEPIRIDE 2 MG TAB PO SCH (08:39)
[2021-01-23] MEDS ORDERED: METHYLPREDNISOLONE SOD SUCC 40 MG/ML VIAL 1ML IV ONE ×2 (15:30→20:00)
[2021-01-23] MEDS: SIMVASTATIN 20 MG TAB PO SCH (20:31)
[2021-01-23] MEDS: TAMSULOSIN HCL 0.4 MG CAP PO SCH (20:31)
[2021-01-23] MEDS: INSULIN GLARGINE 100 UNITS/ML VIAL SQ SCH (21:00)
[2021-01-24] VITALS: BP 147/125
[2021-01-24] MEDS: MORPHINE SULFATE INJ 2 MG/ML SYR IV PRN ×2 (02:00→06:00)
[2021-01-24] MEDS: ONDANSETRON HCL INJ 2MG/ML 2ML 2 MG/ML VIAL IV PRN (02:20)
[2021-01-24] MEDS: SODIUM CHLORIDE 0.9% 1000ML 1,000 ML IV SCH (03:45)
[2021-01-24 04:00] VITALS: BP 133/70
[2021-01-24] MEDS: B&O 60MG R/S 60 MG SUPP PR PRN (06:30)
[2021-01-24 06:49] LABS: ANION GAP 9.9 mmol/L (8-16); CALCIUM 8.4 mg/dL (8.4-10.2); CREATININE, SERUM 0.81 mg/dL (0.72-1.25); POTASSIUM 3.9 mmol/L (3.5-5.1)
[2021-01-24 08:22] VITALS: BP 123/87
[2021-01-24 09:44] VITALS: BP 123/87
[2021-01-24] MEDS: GLIMEPIRIDE 2 MG TAB PO SCH (10:00)
[2021-01-24] MEDS: LISINOPRIL 20 MG TAB PO SCH (10:00)
[2021-01-24 11:29] VITALS: BP 127/65
== END 2021-01-24 12:45 | disposition home or self-care (01) | DRG 669 ==
LOC: ER 14:51 → ERHOLD 17:58 → MED/SURG2 19:42
PROVIDERS: ADMIT Family Medicine; ATTEND Family Medicine
PROC: 0T5B8ZZ Destruction of Bladder, Via Natural or Artificial Opening Endoscopic (ICD-10-PCS; 2021-01-21)
PROC: 0T788ZZ Dilation of Bilateral Ureters, Via Natural or Artificial Opening Endoscopic (ICD-10-PCS; 2021-01-21)
PROC: BT141ZZ Fluoroscopy of Kidneys, Ureters and Bladder using Low Osmolar Contrast (ICD-10-PCS; 2021-01-21)
PROC: 0TCB8ZZ Extirpation of Matter from Bladder, Via Natural or Artificial Opening Endoscopic (ICD-10-PCS; principal; 2021-01-21 11:30)
DX: N32.89 Other specified disorders of bladder (principal); E66.2 Morbid (severe) obesity with alveolar hypoventilation; N17.9 Acute kidney failure, unspecified; N18.4 Chronic kidney disease, stage 4 (severe); R31.9 Hematuria, unspecified; R33.9 Retention of urine, unspecified; Z86.73 Personal history of transient ischemic attack (TIA), and cerebral infarction without residual deficits; Z68.35 Body mass index [BMI] 35.0-35.9, adult; E78.00 Pure hypercholesterolemia, unspecified; Z87.891 Personal history of nicotine dependence; N40.0 Benign prostatic hyperplasia without lower urinary tract symptoms; N47.1 Phimosis; N50.0 Atrophy of testis; K57.90 Diverticulosis of intestine, part unspecified, without perforation or abscess without bleeding; N40.1 Benign prostatic hyperplasia with lower urinary tract symptoms; N13.8 Other obstructive and reflux uropathy; I12.9 Hypertensive chronic kidney disease with stage 1 through stage 4 chronic kidney disease, or unspecified chronic kidney disease; E78.5 Hyperlipidemia, unspecified; E11.22 Type 2 diabetes mellitus with diabetic chronic kidney disease; E11.65 Type 2 diabetes mellitus with hyperglycemia; Z20.822 Contact with and (suspected) exposure to COVID-19
CPT/HCPCS: 36415; 51700; 74176; 74420; 80048; 80053; 81001; 82948; 83735; 84550; 85025; 85610; 85730; 87086; 93971; 96361; 99284; C1758; J0696; J1815; J2001; J2250; J2270; J2405; J2920; J3010; J7030; U0002